=== PATIENT | male | born 1990 | race Caucasian/White ===

== ENCOUNTER 2018-12-29 13:53 | Observation (INO) | payer MEDICAID ==
[2018-12-29] MEDS ORDERED: BABY ASPIRIN 81 MG CHEW PO ONE (13:57)
[2018-12-29] MEDS ORDERED: Sodium Chloride 0.9% 1000 ML 1,000 ML IV STA ×2 (13:57→16:08)
[2018-12-29] MEDS ORDERED: LOPRESSOR 5 MG/5 ML INJECTION IV ONE ×2 (13:57→14:46)
--- NOTE | 2018-12-29 14:09 | ERPHSYRPT ---
- History of Present Illness Time Seen by Provider: 12/29/18 14:00 Historian: patient Exam Limitations: no limitations Physician History: the patient has been having sharp chest pain essentially with radiation to the back for the past 12 hours. He was at work with the chest pain continuing and he began to feel dizzy, so he came into the emergency department for further evaluation. Patient did have upper respiratory symptoms approximately 3 weeks ago. Timing/Duration: hour(s) (12) Activities at Onset: none Quality: sharpness Location: central Chest Pain Radiation: back Severity of Pain-Max: severe Severity of Pain-Current: severe Modifying Factors: Improves With: nothing Associated Symptoms: No nausea, No vomiting, No palpitations, No heartburn, No abdominal pain, No shortness of breath, No cough, No hurts to breathe, No diaphoresis, No chills, No fever, No fatigue, No weakness, No swelling/lump in chest, No syncope, No rash, No headache, No dizziness, No edema, No back pain Prior Chest Pain/Cardiac Workup: no prior chest pain, no prior cardiac workup Nitro Today/Relief: no nitro taken today Aspirin Treatment Today: no aspirin today Allergies/Adverse Reactions: penicillin G Allergy (Intermediate, Verified 12/29/18 14:06) CHILDHOOD Home Medications: Armodafinil [Nuvigil] 250 mg PO DAILY 12/29/18 [History] Hydrocodone/Acetaminophen [[place] 7.5-325 Tablet] 1.5 tab PO DAILY 12/29/18 [ History] Hx Tetanus, Diphtheria Vaccination/Date Given: Yes Hx Influenza Vaccination/Date Given: No Hx Pneumococcal Vaccination/Date Given: No - Review of Systems Constitutional: No Fever, No Chills, No Fatigue Eyes: No Eye Pain, No Vision Changes Ears, Nose, & Throat: No Nose Congestion, No Mouth Swelling, No Throat Swelling , No Painful Swallowing Respiratory: No Cough, No Dyspnea Cardiac: Chest Pain, No Edema, No Palpitations Abdominal/Gastrointestinal: No Abdominal Pain, No Nausea, No Vomiting, No Hematemesis, No Hematochezia, No Melena Genitourinary Symptoms: No Hematuria, No Flank Pain Musculoskeletal: No Back Pain, No Neck Pain Skin: No Pruritis, No Rash Neurological: No Dizziness, No Focal Weakness, No Parasthesia, No Tremors Psychological: Anxiety, No Emotional Lability Endocrine: No Hair Changes, No Excessive Sweating Hematologic/Lymphatic: No Easy Bleeding, No Easy Bruising All Other Systems: Reviewed and Negative - Past Medical History Pertinent Past Medical History: Yes Neurological History: No Pertinent History ENT History: No Pertinent History Cardiac History: No Pertinent History Respiratory History: No Pertinent History Endocrine Medical History: No Pertinent History Musculoskeletal History: Fractures GI Medical History: No Pertinent History History: No Pertinent History Psycho-Social History: No Pertinent History Male Reproductive Disorders: No Pertinent History Other Medical History: NARCOLEPSY - Past Surgical History Past Surgical History: Yes Neuro Surgical History: No Pertinent History Cardiac: No Pertinent History Respiratory: No Pertinent History Gastrointestinal: No Pertinent History Genitourinary: No Pertinent History Musculoskeletal: Orthopedic Surgery Male Surgical History: No Pertinent History Other Surgical History: RT FEMUR FX, BACK - Social History Smoking Status: Never smoker Exposure to second hand smoke: No Drug Use: none Patient Lives Alone: No - Nursing Vital Signs Nursing Vital Signs: Initial Vital Signs Pulse Rate 111 H 12/29/18 13:54 Respiratory Rate 17 12/29/18 13:54 Blood Pressure 154/101 12/29/18 13:54 O2 Sat by Pulse Oximetry 100 12/29/18 13:54 Pain Scale Pain Intensity 5 - Physical Exam General Appearance: no apparent distress, alert, anxiety Eye Exam: PERRL/EOMI, eyes nml inspection, No scleral icterus, No pale conjunctivae Ears, Nose, Throat Exam: pharynx normal, moist mucous membranes Neck Exam: normal inspection, non-tender, supple, full range of motion, No meningismus, No Brudzinski, No lymphadenopathy, No midline tenderness Respiratory Exam: normal breath sounds, lungs clear, airway intact, No chest tenderness, No respiratory distress, No diminished breath sounds, No accessory muscle use, No prolonged expirations, No crackles/rales, No rhonchi, No wheezing , No stridor Cardiovascular Exam: normal heart sounds, normal peripheral pulses, tachycardia , capillary refill <2 sec, No murmur, No friction rub, No gallop Gastrointestinal/Abdomen Exam: soft, normal bowel sounds, No tenderness, No distention, No guarding, No ecchymosis, No rebound Back Exam: normal inspection, normal range of motion, No CVA tenderness, No vertebral tenderness, No rash Extremity Exam: normal inspection, normal range of motion, pelvis stable, No calf tenderness, No deformities, No inflammation, No swelling Neurologic Exam: alert, oriented x 3, cooperative, bicycle messenger II-XII nml as tested, normal mood/affect, sensation nml, No agitation Skin Exam: normal color, warm, dry, rash, No petechiae SpO2 Interpretation: normal O2 Delivery: Room Air - Course Nursing assessment & vital signs reviewed: Yes EKG Interpreted by Me: RATE (105), Sinus Tach, NORMAL AXIS, NORMAL INTERVALS, NORMAL QRS, NORMAL ST-T, Other (negative previous EKG for comparison) - CT Exams Chest CT Interpretation: Negative, Tele-radiologist Report, Other (yellowish interpretation:pleural space heart aorta lymph nodes don't/joints and soft tissues were unremarkable for any consolidations, masses, pneumothorax, pleural effusion, cardiomegaly, pericardial effusion, aortic aneurysm, enlarged lymph nodes, acute fracture. The timing of the contrast bolus opacification of pulmonary vascular is very faint, so this examination is nondiagnostic for pulmonary embolism. Overall impression is no significant abnormality is present.) Ordered Tests: Active Orders 24 hr Category Date Time Status Server Cashier STAT Care 12/29/18 13:59 Active EKG-ER Only STAT Care 12/29/18 13:57 Active IV Insertion STAT Care 12/29/18 13:57 Active Pulse Oximetry (ED) STAT Care 12/29/18 13:57 Active CHEST 1 VIEW (PORTABLE) Stat Exams 12/29/18 13:58 Taken CHEST WITH CONTRAST [CT] Stat Exams 12/29/18 15:01 Taken CBC W DIFF Stat Lab 12/29/18 14:12 Completed CK-Creatinine Phosphokinase Stat Lab 12/29/18 14:12 Completed CMP Stat Lab 12/29/18 14:12 Completed D-DIMER QUANTITATION Stat Lab 12/29/18 14:12 Completed MAGNESIUM Stat Lab 12/29/18 15:15 Completed NT PRO BNP Stat Lab 12/29/18 14:12 Completed PROTIME WITH INR Stat Lab 12/29/18 14:12 Completed PTT Stat Lab 12/29/18 14:12 Completed TROPONIN Q3H Lab 12/29/18 14:12 Completed TROPONIN Q3H Lab 12/29/18 17:00 Ordered TROPONIN Q3H Lab 12/29/18 20:00 Ordered TROPONIN Q3H Lab 12/29/18 23:00 Ordered TROPONIN Q3H Lab 12/30/18 01:00 Ordered Urine Triage Profile Stat Lab 12/29/18 13:58 Completed Medication Summary Generic Name Dose Route Start Last Admin Trade Name Freq PRN Reason Stop Dose Admin Potassium Chloride 20 meq in 100 mls @ 50 mls/hr 12/29/18 14:39 12/29/18 14: 57 Potassium Chloride 20 Meq In Water 100ml IV 12/29/18 16:38 50 mls/hr STAT ONE Administration Sodium Chloride 1,000 mls @ 999 mls/hr 12/29/18 16:08 12/29/18 16:09 Sodium Chloride 0.9% 1000 Ml IV 12/29/18 17:08 200 mls/hr .Q1H1M STA Administration Discontinued Medications Generic Name Dose Route Start Last Admin Trade Name Freq PRN Reason Stop Dose Admin Aspirin 324 mg 12/29/18 13:57 12/29/18 14:36 Baby Aspirin 81 Mg Chew PO 12/29/18 13:58 324 mg STAT ONE Administration Sodium Chloride 1,000 mls @ 999 mls/hr 12/29/18 13:57 12/29/18 16:04 Sodium Chloride 0.9% 1000 Ml IV 12/29/18 14:57 Infused .Q1H1M STA Infusion Sodium Chloride Confirm 12/29/18 14:35 Sodium Chloride 0.9% 1000 Ml Administered 12/29/18 14:36 Dose 1,000 mls @ ud .ROUTE .STK-MED ONE Potassium Chloride Confirm 12/29/18 14:56 Potassium Chloride 20 Meq In Water 100ml Administered 12/29/18 14:57 Dose 100 mls @ ud IV .STK-MED ONE Sodium Chloride Confirm 12/29/18 16:07 Sodium Chloride 0.9% 1000 Ml Administered 12/29/18 16:08 Dose 1,000 mls @ ud .ROUTE .STK-MED ONE Metoprolol Tartrate 5 mg 12/29/18 13:57 12/29/18 14:49 Lopressor 5 Mg/5 Ml Injection IV 12/29/18 13:58 2.5 mg STAT ONE Administration Metoprolol Tartrate Confirm 12/29/18 14:46 Lopressor 5 Mg/5 Ml Injection Administered 12/29/18 14:47 Dose 5 mg IV .STK-MED ONE Potassium Chloride 40 meq 12/29/18 14:39 12/29/18 14:56 Klor Con 10 Meq PO 12/29/18 14:40 40 meq STAT ONE Administration Potassium Chloride Confirm 12/29/18 14:55 Klor Con 10 Meq Administered 12/29/18 14:56 Dose 40 meq PO .STK-MED ONE Lab/Rad Data: Laboratory Result Diagrams 12/29/18 14:12 12/29/18 14:12 Laboratory Results 12/29/18 12/29/18 12/29/18 Range/Units 15:15 14:12 14:12 WBC (4.0-10.5) K/mm3 RBC (4.1-5.6) M/mm3 Hgb (12.5-18.0) gm/dl Hct (42-50) % MCV (78-100) fl MCH (26-32) pg MCHC (32-36) g/dl RDW (11.5-14.0) % Plt Count (150-450) K/mm3 MPV (6-9.5) fl Gran % (36.0-66.0) % Eos # (Auto) (0-0.5) Absolute Lymphs (auto) (1.0-4.6) Absolute Monos (auto) (0.0-1.3) Lymphocytes % (24.0-44.0) % Monocytes % (0.0-12.0) % Eosinophils % (0.00-5.0) % Basophils % (0.0-0.4) % Absolute Granulocytes (1.4-6.9) Basophils # (0-0.4) PT 12.0 (8.83-12.87) SECONDS INR 1.06 (0.8-3.0) APTT 31.7 (24.1-36.1) SECONDS D-Dimer < 215 L (215-500) ng/mL Sodium (137-145) mmol/L Potassium (3.5-5.1) mmol/L Chloride (98-107) mmol/L Carbon Dioxide (22-30) mmol/L Anion Gap (5-15) MEQ/L BUN (9-20) mg/dL Creatinine (0.66-1.25) mg/dL Estimated GFR ML/MIN Glucose (74-106) mg/dL Calcium (8.4-10.2) mg/dL Magnesium 2.0 (1.6-2.3) mg/dL Total Bilirubin (0.2-1.3) mg/dL AST (17-59) U/L ALT (0-50) U/L Alkaline Phosphatase (38-126) U/L Creatine Kinase (55-170) U/L Troponin I 0.040 H* (0.000-0.034) ng/mL NT-Pro-B Natriuret Pep (0-450) pg/mL Serum Total Protein (6.3-8.2) g/dL Albumin (3.5-5.0) g/dL Urine Opiates Level (NEGATIVE) Ur Methadone (NEGATIVE) Urine Barbiturates (NEGATIVE) Ur Phencyclidine (PCP) (NEGATIVE) Urine Amphetamine (NEGATIVE) U Benzodiazepine Level (NEGATIVE) Urine Cocaine (NEGATIVE) Urine Marijuana (THC) (NEGATIVE) 12/29/18 12/29/18 12/29/18 Range/Units 14:12 14:12 13:58 WBC 9.9 (4.0-10.5) K/mm3 RBC 4.67 (4.1-5.6) M/mm3 Hgb 14.9 (12.5-18.0) gm/dl Hct 41.7 L (42-50) % MCV 89.3 (78-100) fl MCH 31.9 (26-32) pg MCHC 35.7 (32-36) g/dl RDW 12.5 (11.5-14.0) % Plt Count 227 (150-450) K/mm3 MPV 9.6 H (6-9.5) fl Gran % 57.6 (36.0-66.0) % Eos # (Auto) 0.13 (0-0.5) Absolute Lymphs (auto) 2.99 (1.0-4.6) Absolute Monos (auto) 1.07 (0.0-1.3) Lymphocytes % 30.1 (24.0-44.0) % Monocytes % 10.8 (0.0-12.0) % Eosinophils % 1.3 (0.00-5.0) % Basophils % 0.2 (0.0-0.4) % Absolute Granulocytes 5.73 (1.4-6.9) Basophils # 0.02 (0-0.4) PT (8.83-12.87) SECONDS INR (0.8-3.0) APTT (24.1-36.1) SECONDS D-Dimer (215-500) ng/mL Sodium 141 (137-145) mmol/L Potassium 3.0 L (3.5-5.1) mmol/L Chloride 100 (98-107) mmol/L Carbon Dioxide 30 (22-30) mmol/L Anion Gap 13.2 (5-15) MEQ/L BUN 11 (9-20) mg/dL Creatinine 0.79 (0.66-1.25) mg/dL Estimated GFR > 60.0 ML/MIN Glucose 102 (74-106) mg/dL Calcium 9.3 (8.4-10.2) mg/dL Magnesium (1.6-2.3) mg/dL Total Bilirubin 0.80 (0.2-1.3) mg/dL AST 20 (17-59) U/L ALT 22 (0-50) U/L Alkaline Phosphatase 47 (38-126) U/L Creatine Kinase 144 (55-170) U/L Troponin I (0.000-0.034) ng/mL NT-Pro-B Natriuret Pep 73.7 (0-450) pg/mL Serum Total Protein 7.8 (6.3-8.2) g/dL Albumin 4.7 (3.5-5.0) g/dL Urine Opiates Level NEGATIVE (NEGATIVE) Ur Methadone NEGATIVE (NEGATIVE) Urine Barbiturates NEGATIVE (NEGATIVE) Ur Phencyclidine (PCP) NEGATIVE (NEGATIVE) Urine Amphetamine NEGATIVE (NEGATIVE) U Benzodiazepine Level NEGATIVE (NEGATIVE) Urine Cocaine NEGATIVE (NEGATIVE) Urine Marijuana (THC) NEGATIVE (NEGATIVE) - Progress Progress: re-examined Air Movement: good Progress Note: 12/29/18 16:25 Patient has a headache but no current chest pain. Sinus rhythm on the patient transport orderly throughout his time in the emergency department Blood Culture(s) Obtained: No Antibiotics given: No Discussed with : Main (@16:10, discussed the patient with Dr Yap. Dr Yap accepted the patient for observation to telemetry at [facility]) Will see patient in: hospital (observation) ([facility] telemetry) Counseled pt/family regarding: lab results, diagnosis, need for follow-up, rad results - Departure Departure Disposition: Observation (to [facility] telemetry) Clinical Impression: Acute chest pain, Elevated blood pressure reading without diagnosis of hypertension, Hypokalemia Acute myocarditis, unspecified Qualifiers: Myocarditis type: unspecified Qualified Code(s): I40.9 - Acute myocarditis, unspecified Condition: Fair Critical Care Time: Yes Critical Care Time(excluding separately billable procedures): Critical 30-74 mins Referrals: LEENA VANN MD [NON-STAFF PHY W/O PRIVILEGES] -
[2018-12-29 14:14] LABS: Absolute Neutrophil Ct (ANC) 5.73 (1.4-6.9); BASOPHIL % 0.2 % (0.0-0.4); Basophil (Absolute #) 0.02 (0-0.4); Eosinophil % 1.3 % (0.00-5.0); Eosinophil (Absolute #) 0.13 (0-0.5); Hematocrit 41.7 % (42-50); Hemoglobin 14.9 gm/dl (12.5-18.0); Lymphocyte (Absolute #) 2.99 (1.0-4.6); Lymphocytes % 30.1 % (24.0-44.0); Mean Cell Volume 89.3 fl (78-100); Mean Corpuscular Hemoglobin 31.9 pg (26-32); Mean Corpuscular Hgb Concent. 35.7 g/dl (32-36); Mean Platelet Volume 9.6 fl (6-9.5); Monocyte (Absolute #) 1.07 (0.0-1.3); Monocytes % 10.8 % (0.0-12.0); Neutrophil % 57.6 % (36.0-66.0); Platelet Count 227 K/mm3 (150-450); Red Blood Count 4.67 M/mm3 (4.1-5.6); Red Cell Distribution Width 12.5 % (11.5-14.0); White Blood Count 9.9 K/mm3 (4.0-10.5)
[2018-12-29 14:21] LABS: INR 1.06 (0.8-3.0)
[2018-12-29 14:24] LABS: PTT 31.7 SECONDS (24.1-36.1)
[2018-12-29 14:32] LABS: D-DIMER QUANTITATION < 215 ng/mL (215-500)
[2018-12-29 14:35] LABS: ALBUMIN 4.7 g/dL (3.5-5.0); ALKALINE PHOSPHATASE 47 U/L (38-126); ANION GAP 13.2 MEQ/L (5-15); BLOOD UREA NITROGEN 11 mg/dL (9-20); CHLORIDE 100 mmol/L (98-107); CK-Creatinine Phosphokinase 144 U/L (55-170); Calcium 9.3 mg/dL (8.4-10.2); Carbon Dioxide 30 mmol/L (22-30); Creatinine 1 0.79 mg/dL (0.66-1.25); Glucose 102 mg/dL (74-106); NT PRO BNP 73.7 pg/mL (0-450); SGOT/AST 20 U/L (17-59); SGPT/ALT 22 U/L (0-50); SODIUM 141 mmol/L (137-145); Total Protein 7.8 g/dL (6.3-8.2)
[2018-12-29] MEDS ORDERED: Sodium Chloride 0.9% 1000 ML 1,000 ML ONE ×2 (14:35→16:07)
[2018-12-29] MEDS ORDERED: Klor Con 10 MEQ PO ONE ×2 (14:39→14:55)
[2018-12-29] MEDS ORDERED: POTASSIUM CHLORIDE 20 mEq IN WATER 100ML 20 MEQ/100 ML BAG IV ONE (14:39)
[2018-12-29] MEDS ORDERED: POTASSIUM CHLORIDE 20 mEq IN WATER 100ML 100 ML IV ONE (14:56)
[2018-12-29 15:39] LABS: Amphetamine,Urine NEGATIVE (NEGATIVE); Barbiturate,Urine NEGATIVE (NEGATIVE); Benzodiazepine,Urine NEGATIVE (NEGATIVE); Cocaine,Urine NEGATIVE (NEGATIVE); Methadone,Urine NEGATIVE (NEGATIVE); Opiate,Urine NEGATIVE (NEGATIVE); PCP,Urine NEGATIVE (NEGATIVE); THC,Urine NEGATIVE (NEGATIVE)
[2018-12-29] MEDS ORDERED: BENADRYL 50 MG/ML IV ONE (16:30)
[2018-12-29] MEDS ORDERED: MORPHINE SULFATE 4 MG INJ IV ONE (16:30)
[2018-12-29] MEDS ORDERED: BENADRYL 50 MG/ML ONE (16:36)
[2018-12-29] MEDS ORDERED: MORPHINE SULFATE 4 MG INJ ONE (16:37)
[2018-12-29] MEDS ORDERED: MORPHINE SULFATE 4 MG INJ IV PRN (16:47)
[2018-12-29] MEDS ORDERED: TYLENOL 325 MG PO PRN (16:47)
[2018-12-29] MEDS ORDERED: TORAdol 30 mg Injection ONE (18:11)
--- NOTE | 2018-12-29 19:22 | XRAY ---
Indication: Chest pain. Multiple contiguous axial images obtained through the chest using 80 cc Isovue-370 contrast. Comparison: None Lungs demonstrate minimal bilateral dependent atelectasis. No suspicious pulmonary mass, infiltrate, or effusion. Heart is not enlarged. Aorta is normal in course and caliber. No pathologic mediastinal/hilar lymphadenopathy. Bony thorax intact with minimal degenerative changes throughout the spine and previous L1 kyphoplasty. Limited upper abdomen including adrenal glands are unremarkable. Impression: Negative CT chest with contrast exam. Comment: Preliminary interpretation was made by [facility]. No critical discrepancy. CTDI 16.72
--- NOTE | 2018-12-29 19:25 | XRAY ---
Indication: Chest pain. Comparison: November 24, 2015. Portable chest less inflated and remains clear. Heart and mediastinal structures within normal limits. Bony thorax intact. Impression: Nonacute chest.
[2018-12-29] MEDS: TORAdol 30 mg Injection IV PRN (20:48)
[2018-12-29] MEDS ORDERED: Pepcid 20 MG VIAL IV ONE (20:54)
[2018-12-29] MEDS: Pepcid 20 MG VIAL IV SCH (22:54)
[2018-12-30] MEDS: TORAdol 30 mg Injection IV PRN ×2 (01:30→07:44)
[2018-12-30 01:50] LABS: BLOOD UREA NITROGEN 8 mg/dL (9-20); CHLORIDE 105 mmol/L (98-107); Calcium 8.8 mg/dL (8.4-10.2); Carbon Dioxide 28 mmol/L (22-30); Creatinine 1 0.67 mg/dL (0.66-1.25); Glucose 122 mg/dL (74-106); NT PRO BNP 109 pg/mL (0-450); Potassium 3.9 mmol/L (3.5-5.1); SODIUM 141 mmol/L (137-145)
[2018-12-30 01:59] LABS: Absolute Neutrophil Ct (ANC) 3.77 (1.4-6.9); BASOPHIL % 0.3 % (0.0-0.4); Basophil (Absolute #) 0.02 (0-0.4); Eosinophil % 3.1 % (0.00-5.0); Eosinophil (Absolute #) 0.25 (0-0.5); Hematocrit 40.3 % (42-50); Hemoglobin 14.1 gm/dl (12.5-18.0); Lymphocyte (Absolute #) 3.11 (1.0-4.6); Lymphocytes % 38.9 % (24.0-44.0); Mean Corpuscular Hemoglobin 31.8 pg (26-32); Mean Platelet Volume 10.3 fl (6-9.5); Monocyte (Absolute #) 0.85 (0.0-1.3); Monocytes % 10.6 % (0.0-12.0); Neutrophil % 47.1 % (36.0-66.0); Platelet Count 229 K/mm3 (150-450); Red Blood Count 4.43 M/mm3 (4.1-5.6); Red Cell Distribution Width 12.8 % (11.5-14.0)
[2018-12-30] MEDS ORDERED: MEDICATION INTERVENTION PO SCH (07:45)
--- NOTE | 2018-12-30 08:38 | PCM.HP ---
History of Present Illness - Chief Complaint Chief Complaint: Acute Chest Pain, for 1-2 days History of Present Illness: is a 28 year old male.patient has been having sharp chest pain essentially with radiation to the back for the past 12 hours. He was at work with the chest pain continuing and he began to feel dizzy, so he came into the emergency department for further evaluation. Patient did have upper respiratory symptoms approximately 3 weeks ago. Timing/Duration: hour(s) (12) Activities at Onset: none Quality: sharpness Location: central Chest Pain Radiation: back Severity of Pain-Max: severe Severity of Pain-Current: severe Modifying Factors: Improves With: nothing Associated Symptoms: No nausea, No vomiting, No palpitations, No heartburn, No abdominal pain, No shortness of breath, No cough, No hurts to breathe, No diaphoresis, No chills, No fever, No fatigue, No weakness, No swelling/lump in chest, No syncope, No rash, No headache, No dizziness, No edema, No back pain Prior Chest Pain/Cardiac Workup: no prior chest pain, no prior cardiac workup Nitro Today/Relief: no nitro taken today Aspirin Treatment Today: no aspirin today - Review of Systems Constitutional: No Fever, No Chills Eyes: No Symptoms Ears, Nose, & Throat: No Symptoms Respiratory: No Cough, No Short Of Breath Cardiac: Chest Pain, No Edema, No Syncope Abdominal/Gastrointestinal: No Abdominal Pain, No Nausea, No Vomiting, No Diarrhea Genitourinary Symptoms: No Dysuria Musculoskeletal: No Back Pain, No Neck Pain Skin: No Rash Neurological: No Dizziness, No Focal Weakness, No Sensory Changes Psychological: No Symptoms Endocrine: No Symptoms Hematologic/Lymphatic: No Symptoms Immunological/Allergic: No Symptoms Medications & Allergies Home Medications: Home Medication List Armodafinil [Nuvigil] 250 mg PO QAM 12/29/18 [History Confirmed 12/29/18] Hydrocodone/Acetaminophen [[place] 7.5-325 Tablet] 1.5 tab PO DAILY 12/29/18 [ History Confirmed 12/29/18] Allergies/Adverse Reactions: Allergies Allergy/AdvReac Type Severity Reaction Status Date / Time penicillin G Allergy Intermediate CHILDHOOD Verified 12/29/18 16:54 - Past Medical History Past Medical History: Yes Neurological History: No Pertinent History ENT History: No Pertinent History Cardiac History: No Pertinent History Respiratory History: No Pertinent History Endocrine Medical History: No Pertinent History Musculoskelatal History: Fractures GI Medical History: No Pertinent History History: No Pertinent History Pyscho-Social History: No Pertinent History Male Reproductive Disorders: No Pertinent History Comment: NARCOLEPSY - Past Surgical History Past Surgical History: Yes Neuro Surgical History: No Pertinent History Cardiac History: No Pertinent History Respiratory Surgery: No Pertinent History GI Surgical History: No Pertinent History Genitourinary Surgical Hx: No Pertinent History Musculskeletal Surgical Hx: Orthopedic Surgery Male Surgical History: No Pertinent History Other Surgical History: RT FEMUR FX, BACK, Les/screws right arm/elbow, les/ screws right knee/leg/ankle - Social History Smoking Status: Former smoker Exposure to second hand smoke: No Alcohol: None Drug Use: none - Physical Exam Vital Signs: Vital Signs - 24 hr Temp Pulse Pulse Resp BP Pulse Ox 12/30/18 07:00 97.4 F 67 18 143/64 98 12/30/18 03:00 97.9 F 83 18 117/63 96 12/29/18 23:31 98.3 F 100 H 18 120/74 98 12/29/18 20:00 98.2 F 95 H 19 124/73 95 12/29/18 17:08 99.8 F 91 H 16 141/95 98 12/29/18 16:37 100 H 16 128/77 98 12/29/18 16:05 102 H 14 128/77 96 12/29/18 15:07 98 F 98 H 18 129/92 97 12/29/18 14:43 105 H 16 146/92 98 12/29/18 14:28 111 H 14 133/84 97 12/29/18 13:57 119 H 18 155/96 100 12/29/18 13:54 115 H 111 H 17 154/101 100 General Appearance: no apparent distress, alert Neurologic Exam: alert, oriented x 3, cooperative, normal mood/affect, nml cerebellar function, nml station & gait, sensation nml, No motor deficits Eye Exam: PERRL/EOMI, eyes nml inspection Ears, Nose, Throat Exam: normal ENT inspection, TMs normal, pharynx normal, moist mucous membranes Neck Exam: normal inspection, non-tender, supple, full range of motion Respiratory Exam: normal breath sounds, lungs clear, No respiratory distress Cardiovascular Exam: regular rate/rhythm, normal heart sounds, normal peripheral pulses Gastrointestinal/Abdomen Exam: soft, normal bowel sounds, No tenderness, No mass Back Exam: normal inspection, normal range of motion, No CVA tenderness, No vertebral tenderness Extremity Exam: normal inspection, normal range of motion, pelvis stable Skin Exam: normal color, warm, dry, No rash Lymphatic Exam: No adenopathy Results - Labs Lab/Micro Results: Lab Results-Last 24 Hours 12/29/18 12/29/18 12/29/18 Range/Units 13:58 14:12 14:12 WBC 9.9 (4.0-10.5) K/mm3 RBC 4.67 (4.1-5.6) M/mm3 Hgb 14.9 (12.5-18.0) gm/dl Hct 41.7 L (42-50) % MCV 89.3 (78-100) fl MCH 31.9 (26-32) pg MCHC 35.7 (32-36) g/dl RDW 12.5 (11.5-14.0) % Plt Count 227 (150-450) K/mm3 MPV 9.6 H (6-9.5) fl Gran % 57.6 (36.0-66.0) % Eos # (Auto) 0.13 (0-0.5) Absolute Lymphs (auto) 2.99 (1.0-4.6) Absolute Monos (auto) 1.07 (0.0-1.3) Lymphocytes % 30.1 (24.0-44.0) % Monocytes % 10.8 (0.0-12.0) % Eosinophils % 1.3 (0.00-5.0) % Basophils % 0.2 (0.0-0.4) % Absolute Granulocytes 5.73 (1.4-6.9) Basophils # 0.02 (0-0.4) PT (8.83-12.87) SECONDS INR (0.8-3.0) APTT (24.1-36.1) SECONDS D-Dimer (215-500) ng/mL Sodium 141 (137-145) mmol/L Potassium 3.0 L (3.5-5.1) mmol/L Chloride 100 (98-107) mmol/L Carbon Dioxide 30 (22-30) mmol/L Anion Gap 13.2 (5-15) MEQ/L BUN 11 (9-20) mg/dL Creatinine 0.79 (0.66-1.25) mg/dL Estimated GFR > 60.0 ML/MIN Glucose 102 (74-106) mg/dL Calcium 9.3 (8.4-10.2) mg/dL Magnesium (1.6-2.3) mg/dL Total Bilirubin 0.80 (0.2-1.3) mg/dL AST 20 (17-59) U/L ALT 22 (0-50) U/L Alkaline Phosphatase 47 (38-126) U/L Creatine Kinase 144 (55-170) U/L Troponin I (0.000-0.034) ng/mL NT-Pro-B Natriuret Pep 73.7 (0-450) pg/mL Serum Total Protein 7.8 (6.3-8.2) g/dL Albumin 4.7 (3.5-5.0) g/dL Urine Opiates Level NEGATIVE (NEGATIVE) Ur Methadone NEGATIVE (NEGATIVE) Urine Barbiturates NEGATIVE (NEGATIVE) Ur Phencyclidine (PCP) NEGATIVE (NEGATIVE) Urine Amphetamine NEGATIVE (NEGATIVE) U Benzodiazepine Level NEGATIVE (NEGATIVE) Urine Cocaine NEGATIVE (NEGATIVE) Urine Marijuana (THC) NEGATIVE (NEGATIVE) 12/29/18 12/29/18 12/29/18 Range/Units 14:12 14:12 15:15 WBC (4.0-10.5) K/mm3 RBC (4.1-5.6) M/mm3 Hgb (12.5-18.0) gm/dl Hct (42-50) % MCV (78-100) fl MCH (26-32) pg MCHC (32-36) g/dl RDW (11.5-14.0) % Plt Count (150-450) K/mm3 MPV (6-9.5) fl Gran % (36.0-66.0) % Eos # (Auto) (0-0.5) Absolute Lymphs (auto) (1.0-4.6) Absolute Monos (auto) (0.0-1.3) Lymphocytes % (24.0-44.0) % Monocytes % (0.0-12.0) % Eosinophils % (0.00-5.0) % Basophils % (0.0-0.4) % Absolute Granulocytes (1.4-6.9) Basophils # (0-0.4) PT 12.0 (8.83-12.87) SECONDS INR 1.06 (0.8-3.0) APTT 31.7 (24.1-36.1) SECONDS D-Dimer < 215 L (215-500) ng/mL Sodium (137-145) mmol/L Potassium (3.5-5.1) mmol/L Chloride (98-107) mmol/L Carbon Dioxide (22-30) mmol/L Anion Gap (5-15) MEQ/L BUN (9-20) mg/dL Creatinine (0.66-1.25) mg/dL Estimated GFR ML/MIN Glucose (74-106) mg/dL Calcium (8.4-10.2) mg/dL Magnesium 2.0 (1.6-2.3) mg/dL Total Bilirubin (0.2-1.3) mg/dL AST (17-59) U/L ALT (0-50) U/L Alkaline Phosphatase (38-126) U/L Creatine Kinase (55-170) U/L Troponin I 0.040 H* (0.000-0.034) ng/mL NT-Pro-B Natriuret Pep (0-450) pg/mL Serum Total Protein (6.3-8.2) g/dL Albumin (3.5-5.0) g/dL Urine Opiates Level (NEGATIVE) Ur Methadone (NEGATIVE) Urine Barbiturates (NEGATIVE) Ur Phencyclidine (PCP) (NEGATIVE) Urine Amphetamine (NEGATIVE) U Benzodiazepine Level (NEGATIVE) Urine Cocaine (NEGATIVE) Urine Marijuana (THC) (NEGATIVE) 12/29/18 12/29/18 12/29/18 Range/Units 17:09 19:47 19:47 WBC (4.0-10.5) K/mm3 RBC (4.1-5.6) M/mm3 Hgb (12.5-18.0) gm/dl Hct (42-50) % MCV (78-100) fl MCH (26-32) pg MCHC (32-36) g/dl RDW (11.5-14.0) % Plt Count (150-450) K/mm3 MPV (6-9.5) fl Gran % (36.0-66.0) % Eos # (Auto) (0-0.5) Absolute Lymphs (auto) (1.0-4.6) Absolute Monos (auto) (0.0-1.3) Lymphocytes % (24.0-44.0) % Monocytes % (0.0-12.0) % Eosinophils % (0.00-5.0) % Basophils % (0.0-0.4) % Absolute Granulocytes (1.4-6.9) Basophils # (0-0.4) PT (8.83-12.87) SECONDS INR (0.8-3.0) APTT (24.1-36.1) SECONDS D-Dimer (215-500) ng/mL Sodium (137-145) mmol/L Potassium 4.3 D (3.5-5.1) mmol/L Chloride (98-107) mmol/L Carbon Dioxide (22-30) mmol/L Anion Gap (5-15) MEQ/L BUN (9-20) mg/dL Creatinine (0.66-1.25) mg/dL Estimated GFR ML/MIN Glucose (74-106) mg/dL Calcium (8.4-10.2) mg/dL Magnesium (1.6-2.3) mg/dL Total Bilirubin (0.2-1.3) mg/dL AST (17-59) U/L ALT (0-50) U/L Alkaline Phosphatase (38-126) U/L Creatine Kinase (55-170) U/L Troponin I 0.047 H* 0.052 H* (0.000-0.034) ng/mL NT-Pro-B Natriuret Pep (0-450) pg/mL Serum Total Protein (6.3-8.2) g/dL Albumin (3.5-5.0) g/dL Urine Opiates Level (NEGATIVE) Ur Methadone (NEGATIVE) Urine Barbiturates (NEGATIVE) Ur Phencyclidine (PCP) (NEGATIVE) Urine Amphetamine (NEGATIVE) U Benzodiazepine Level (NEGATIVE) Urine Cocaine (NEGATIVE) Urine Marijuana (THC) (NEGATIVE) 12/29/18 12/30/18 12/30/18 Range/Units 23:05 01:23 EST 01:23 EST WBC 8.0 (4.0-10.5) K/mm3 RBC 4.43 (4.1-5.6) M/mm3 Hgb 14.1 (12.5-18.0) gm/dl Hct 40.3 L (42-50) % MCV 91.0 (78-100) fl MCH 31.8 (26-32) pg MCHC 35.0 (32-36) g/dl RDW 12.8 (11.5-14.0) % Plt Count 229 (150-450) K/mm3 MPV 10.3 H (6-9.5) fl Gran % 47.1 (36.0-66.0) % Eos # (Auto) 0.25 (0-0.5) Absolute Lymphs (auto) 3.11 (1.0-4.6) Absolute Monos (auto) 0.85 (0.0-1.3) Lymphocytes % 38.9 (24.0-44.0) % Monocytes % 10.6 (0.0-12.0) % Eosinophils % 3.1 (0.00-5.0) % Basophils % 0.3 (0.0-0.4) % Absolute Granulocytes 3.77 (1.4-6.9) Basophils # 0.02 (0-0.4) PT (8.83-12.87) SECONDS INR (0.8-3.0) APTT (24.1-36.1) SECONDS D-Dimer (215-500) ng/mL Sodium (137-145) mmol/L Potassium (3.5-5.1) mmol/L Chloride (98-107) mmol/L Carbon Dioxide (22-30) mmol/L Anion Gap (5-15) MEQ/L BUN (9-20) mg/dL Creatinine (0.66-1.25) mg/dL Estimated GFR ML/MIN Glucose (74-106) mg/dL Calcium (8.4-10.2) mg/dL Magnesium (1.6-2.3) mg/dL Total Bilirubin (0.2-1.3) mg/dL AST (17-59) U/L ALT (0-50) U/L Alkaline Phosphatase (38-126) U/L Creatine Kinase (55-170) U/L Troponin I 0.040 H* 0.031 (0.000-0.034) ng/mL NT-Pro-B Natriuret Pep (0-450) pg/mL Serum Total Protein (6.3-8.2) g/dL Albumin (3.5-5.0) g/dL Urine Opiates Level (NEGATIVE) Ur Methadone (NEGATIVE) Urine Barbiturates (NEGATIVE) Ur Phencyclidine (PCP) (NEGATIVE) Urine Amphetamine (NEGATIVE) U Benzodiazepine Level (NEGATIVE) Urine Cocaine (NEGATIVE) Urine Marijuana (THC) (NEGATIVE) 12/30/18 Range/Units 01:23 EST WBC (4.0-10.5) K/mm3 RBC (4.1-5.6) M/mm3 Hgb (12.5-18.0) gm/dl Hct (42-50) % MCV (78-100) fl MCH (26-32) pg MCHC (32-36) g/dl RDW (11.5-14.0) % Plt Count (150-450) K/mm3 MPV (6-9.5) fl Gran % (36.0-66.0) % Eos # (Auto) (0-0.5) Absolute Lymphs (auto) (1.0-4.6) Absolute Monos (auto) (0.0-1.3) Lymphocytes % (24.0-44.0) % Monocytes % (0.0-12.0) % Eosinophils % (0.00-5.0) % Basophils % (0.0-0.4) % Absolute Granulocytes (1.4-6.9) Basophils # (0-0.4) PT (8.83-12.87) SECONDS INR (0.8-3.0) APTT (24.1-36.1) SECONDS D-Dimer (215-500) ng/mL Sodium 141 (137-145) mmol/L Potassium 3.9 (3.5-5.1) mmol/L Chloride 105 (98-107) mmol/L Carbon Dioxide 28 (22-30) mmol/L Anion Gap 12.0 (5-15) MEQ/L BUN 8 L (9-20) mg/dL Creatinine 0.67 (0.66-1.25) mg/dL Estimated GFR > 60.0 ML/MIN Glucose 122 H (74-106) mg/dL Calcium 8.8 (8.4-10.2) mg/dL Magnesium (1.6-2.3) mg/dL Total Bilirubin (0.2-1.3) mg/dL AST (17-59) U/L ALT (0-50) U/L Alkaline Phosphatase (38-126) U/L Creatine Kinase (55-170) U/L Troponin I (0.000-0.034) ng/mL NT-Pro-B Natriuret Pep 109 (0-450) pg/mL Serum Total Protein (6.3-8.2) g/dL Albumin (3.5-5.0) g/dL Urine Opiates Level (NEGATIVE) Ur Methadone (NEGATIVE) Urine Barbiturates (NEGATIVE) Ur Phencyclidine (PCP) (NEGATIVE) Urine Amphetamine (NEGATIVE) U Benzodiazepine Level (NEGATIVE) Urine Cocaine (NEGATIVE) Urine Marijuana (THC) (NEGATIVE) - Radiology Impressions Radiology Exams & Impressions: Radiology Procedures Category Date Time Status CHEST 1 VIEW (PORTABLE) Stat Exams 12/29/18 13:58 Completed CHEST WITH CONTRAST [CT] Stat Exams 12/29/18 15:[address]/CHEST WITH CONTRAST Indication: Chest pain. Multiple contiguous axial images obtained through the chest using 80 cc Isovue-370 contrast. Comparison: None Lungs demonstrate minimal bilateral dependent atelectasis. No suspicious pulmonary mass, infiltrate, or effusion. Heart is not enlarged. Aorta is normal in course and caliber. No pathologic mediastinal/hilar lymphadenopathy. Bony thorax intact with minimal degenerative changes throughout the spine and previous L1 kyphoplasty. Limited upper abdomen including adrenal glands are unremarkable. Impression: Negative CT chest with contrast exam. Comment: Preliminary interpretation was made by [facility]. No critical discrepancy Assessment/Plan (1) Acute chest pain Current Visit: Yes Status: Acute Code(s): R07.9 - CHEST PAIN, UNSPECIFIED (2) Acute myocarditis, unspecified Current Visit: Yes Status: Acute Qualifiers: Myocarditis type: unspecified Qualified Code(s): I40.9 - Acute myocarditis , unspecified Code(s): I40.9 - ACUTE MYOCARDITIS, UNSPECIFIED (3) Elevated blood pressure reading without diagnosis of hypertension Current Visit: Yes Status: Acute Code(s): R03.0 - ELEVATED BLOOD-PRESSURE READING, W/O DIAGNOSIS OF HTN
[2018-12-30] MEDS ORDERED: ENOXAPARIN SODIUM SQ SCH (10:00)
[2018-12-30] MEDS ORDERED: NON-FORMULARY ITEM (Armodafinil [Nuvigil] 250 MG) PO SCH (10:00)
[2018-12-30] MEDS ORDERED: NORCO 7.5/325 MG TAB PO SCH (10:00)
[2018-12-30] MEDS: Pepcid 20 MG VIAL IV SCH (11:27)
[2018-12-30] MEDS: Indocin 25 MG PO SCH ×2 (13:45→15:59)
[2018-12-30 16:06] VITALS: BP 142/80; PULSE 77; O2SAT 96
[2018-12-30] MEDS ORDERED: Sodium Chloride 0.9% 10 ML FLUSH Syringe IV SCH (22:00)
== END 2018-12-30 17:00 | disposition home or self-care (01) ==
LOC: ED 13:53 → MED SURG 16:46
PROVIDERS: ADMIT General Practice; ATTEND General Practice
DX: R07.9 Chest pain, unspecified (principal); I40.9 Acute myocarditis, unspecified; R03.0 Elevated blood-pressure reading, without diagnosis of hypertension; R42 Dizziness and giddiness; Z79.899 Other long term (current) drug therapy
CPT/HCPCS: 36000; 36415; 71045; 71260; 80048; 80053; 80307; 82550; 83735; 83880; 84132; 84484; 85025; 85379; 85610; 85730; 93005; 93041; 93268; 94760; 96360; 96361; 96365; 96374; 96375; 99285; 99291; J1200; J1650; J1885; J2270; J3480; A9270-GY; G0378